=== PATIENT | male | born 1955 | race Caucasian/White ===

== ENCOUNTER 2016-08-15 01:33 | Emergency (ER) | payer OTHER ==
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
[2016-08-15] MEDS ORDERED: DIPH/PERTUSS(ACELL)/TETANUS VAC/PF 0.5 ML SYR (>=10YO) IM ONE (02:07)
[2016-08-15] MEDS ORDERED: LIDOCAINE 1%/EPINEPHRINE INJ 20 ML VIAL INJ ONE (03:32)
[2016-08-15] MEDS ORDERED: HYDROCODONE/ACETAMINOPHEN 5-325 MG 6 TAB/DSPK PO PRN (03:55)
[2016-08-15 04:54] VITALS: BP 107/69
== END 2016-08-15 04:57 | disposition home or self-care (01) ==
LOC: ER 01:33
PROC: 0HQ1XZZ Repair Face Skin, External Approach (ICD-10-PCS; principal; 2016-08-15)
DX: S02.401A Maxillary fracture, unspecified side, initial encounter for closed fracture (principal); S01.81XA Laceration without foreign body of other part of head, initial encounter; Y04.2XXA Assault by strike against or bumped into by another person, initial encounter; Y99.0 Civilian activity done for income or pay; F17.200 Nicotine dependence, unspecified, uncomplicated; Z23 Encounter for immunization
CPT/HCPCS: 99284; 90471; 70450; 70486; 72125; 90715; 12011; J3490

== ENCOUNTER 2016-08-24 22:03 | Emergency (ER) | payer OTHER ==
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
[2016-08-25 00:50] VITALS: BP 119/69
== END 2016-08-25 00:55 | disposition home or self-care (01) ==
LOC: ER 22:03
DX: S01.81XD Laceration without foreign body of other part of head, subsequent encounter (principal); S01.112D Laceration without foreign body of left eyelid and periocular area, subsequent encounter; Y09 Assault by unspecified means

== ENCOUNTER 2019-01-20 07:50 | Day surgery (SDC) | payer OTHER ==
[~2019-01-20 07:50] MED LIST: BUPIVACAINE HCL 0.75% INJ/PF (7.5 MG/1 ML) 10 ML SDV OD PRN; KETOROLAC TROMETHAMINE 0.45% 4 DROP/0.4 ML DROPERETTE OD PRN; LIDOCAINE 1% INJ-PF (10 MG/ML) 30 ML SDV ONE; LIDOCAINE 4% INJ/PF (40 MG/ML) 5 ML AMPUL OD PRN
[2019-01-20] MEDS: TETRACAINE HCL 0.5% OPH SOLN 0.6 ML DROPERETTE OD PRN ×4 (08:06→08:35)
[2019-01-20] MEDS: CYCLOPENTOLATE 0.2%/PHENYLEPHRINE 1% OPH SOLN 2 ML OD PRN ×3 (08:07→08:27)
[2019-01-20] MEDS: TROPICAMIDE 1% OPH SOLN 3 ML OD PRN ×3 (08:07→08:27)
[2019-01-20] MEDS: BESIFLOXACIN HCL 0.6% OPH SUSP 5 ML BOTTLE OD PRN ×4 (08:07→08:58)
[2019-01-20] MEDS: CHONDR SU A NA/HYALUR INTRAOC KIT (SURGICARE) ONE ×2 (08:47)
[2019-01-20] MEDS: EPINEPHRINE INJ/PF 1 MG/1 ML AMPULE ONE ×2 (08:47)
[2019-01-20] MEDS: LIDOCAINE 1%/PHENYLEPHRINE 1.5% 1 ML VIAL ONE ×2 (08:47)
[2019-01-20] MEDS: DORZOLAMIDE HCL 2%/TIMOLOL MALEAT 0.5% OPH SOLN 10 ML OD PRN ×2 (08:58)
[2019-01-20] MEDS: TOBRAMYCIN SULFATE/DEXAMETH OPH OINTMENT 3.5 GM ONE ×2 (08:58)
[2019-01-20] MEDS ORDERED: MIDAZOLAM 2 MG/2 ML INJ ONE (09:04)
== END 2019-01-20 09:31 | disposition home or self-care (01) ==
LOC: SC 07:50
PROVIDERS: ATTEND Ophthalmology
DX: H25.11 Age-related nuclear cataract, right eye (principal); J44.9 Chronic obstructive pulmonary disease, unspecified; I10 Essential (primary) hypertension; E78.00 Pure hypercholesterolemia, unspecified; F17.210 Nicotine dependence, cigarettes, uncomplicated; I25.10 Atherosclerotic heart disease of native coronary artery without angina pectoris; R06.02 Shortness of breath; Z79.51 Long term (current) use of inhaled steroids; Z79.82 Long term (current) use of aspirin; Z88.5 Allergy status to narcotic agent
CPT/HCPCS: 66984; 00142; V2632; J2250; J3490 ×2; J0171; J2370; 142

== ENCOUNTER 2019-02-10 07:12 | Day surgery (SDC) | payer OTHER ==
[~2019-02-10 07:12] MED LIST changes: -BUPIVACAINE HCL 0.75% INJ/PF (7.5 MG/1 ML) 10 ML SDV OD PRN; -KETOROLAC TROMETHAMINE 0.45% 4 DROP/0.4 ML DROPERETTE OD PRN; +KETOROLAC TROMETHAMINE 0.45% 4 DROP/0.4 ML DROPERETTE OS PRN; -LIDOCAINE 1% INJ-PF (10 MG/ML) 30 ML SDV ONE; -LIDOCAINE 4% INJ/PF (40 MG/ML) 5 ML AMPUL OD PRN
[2019-02-10] MEDS ORDERED: LIDOCAINE 1% INJ-PF (10 MG/ML) 30 ML SDV ONE (07:15)
[2019-02-10] MEDS: BESIFLOXACIN HCL 0.6% OPH SUSP 5 ML BOTTLE OS PRN ×4 (07:38→08:36)
[2019-02-10] MEDS: CYCLOPENTOLATE 0.2%/PHENYLEPHRINE 1% OPH SOLN 2 ML OS PRN ×3 (07:38→07:58)
[2019-02-10] MEDS: TROPICAMIDE 1% OPH SOLN 3 ML OS PRN ×3 (07:38→07:58)
[2019-02-10] MEDS: TETRACAINE HCL 0.5% OPH SOLN 0.6 ML DROPERETTE OS PRN ×4 (07:39→08:16)
[2019-02-10] MEDS ORDERED: MIDAZOLAM 2 MG/2 ML INJ ONE (08:21)
[2019-02-10] MEDS: CHONDR SU A NA/HYALUR INTRAOC KIT (SURGICARE) ONE ×2 (08:26)
[2019-02-10] MEDS: LIDOCAINE 1%/PHENYLEPHRINE 1.5% 1 ML VIAL ONE ×2 (08:26)
[2019-02-10] MEDS: EPINEPHRINE INJ/PF 1 MG/1 ML AMPULE ONE ×2 (08:26)
[2019-02-10] MEDS: TOBRAMYCIN SULFATE/DEXAMETH OPH OINTMENT 3.5 GM ONE ×2 (08:36)
[2019-02-10] MEDS: DORZOLAMIDE HCL 2%/TIMOLOL MALEAT 0.5% OPH SOLN 10 ML OS PRN ×2 (08:36)
== END 2019-02-10 09:23 | disposition home or self-care (01) ==
LOC: SC 07:12
PROVIDERS: ATTEND Ophthalmology
DX: H25.12 Age-related nuclear cataract, left eye (principal); Z98.41 Cataract extraction status, right eye; F17.210 Nicotine dependence, cigarettes, uncomplicated; J45.909 Unspecified asthma, uncomplicated; I10 Essential (primary) hypertension; E78.00 Pure hypercholesterolemia, unspecified; I25.10 Atherosclerotic heart disease of native coronary artery without angina pectoris; I25.2 Old myocardial infarction; R06.02 Shortness of breath; Z79.51 Long term (current) use of inhaled steroids; Z79.82 Long term (current) use of aspirin
CPT/HCPCS: 00142; 66984; V2632; J2250; J3490 ×2; J0171; J2370; 142